=== PATIENT | male | born 1960 | race Caucasian/White ===

== ENCOUNTER 2016-08-09 15:59 | Emergency (ER) | payer OTHER ==
--- NOTE | ~2016-08-09 | CR210 ---
[facility]. [facility] A Service of [facility] RADIOLOGY TEXT RESULTS PATIENT: REFUGIO BASS LOCATION: SED : 58 UNIT #: [id number] AGE: [address]: NEGIN PULLIAM SEX: M ORDER DR: [id number] [place] [address] [id number] E MR#: [id number] Acc #: [id number] NAME: REFUGIO BASS. : 1960 SEX: M STUDY DATE/TIME: 08/09/2016 16:33 UNIT: SED ROOM: STUDY DESCRIPTION: CR Ribs Uni 2 View W PA Ch Lt Attending Physician: (Res) Negin Pulliam Ordering Physician: (Res) Negin Pulliam MEDICAL IMAGING REPORT This report is preliminary unless electronic signature is present. EXAM PA chest and left ribs. HISTORY Fell down steps at 2 o'clock this morning, left-sided chest pain. FINDINGS PA view of the chest demonstrates no acute cardiopulmonary disease. No pulmonary contusion, pneumothorax. Detailed views of the left ribs demonstrates no fracture or deformity. Soft tissues unremarkable. IMPRESSION Negative exam. Dictated by... Cody Moore M.D. THIS IS AN ELECTRONICALLY VERIFIED REPORT Cody Moore M.D. at 08/09/2016 9:10 PM Felicita TD: 08/09/2016 19:54 JOB #: [id number] MEDICAL IMAGING REPORT Page 1 of 1
--- NOTE | ~2016-08-09 | CR141 ---
[facility] A Service of [facility] RADIOLOGY TEXT RESULTS PATIENT: REFUGIO BASS LOCATION: SED : 58 UNIT #: [id number] AGE: [address]: NEGIN PULLIAM SEX: M ORDER DR: [id number] [place] [address] [id number] E MR#: [id number] Acc #: [id number] NAME: REFUGIO BASS. : 1960 SEX: M STUDY DATE/TIME: 08/09/2016 16:33 UNIT: SED ROOM: STUDY DESCRIPTION: CR Hand Min 3 Views Lt Attending Physician: (Savita) Negin Pulliam Ordering Physician: Fabiola) Negin Pulliam MEDICAL IMAGING REPORT This report is preliminary unless electronic signature is present. EXAM Left hand, 3 views. HISTORY Fell down steps, 2 o'clock this morning, swelling hand and wrist. FINDINGS Three views of the left hand submitted. The study is limited as the patient could not open their hand and the images were obtained in a clenched fist position. No gross fracture or malalignment. Questionable mild soft tissue swelling over the dorsum of the hand. Bone mineralization suggest mild osteopenia. IMPRESSION Technically limited study as the patient could not open their hand for adequate imaging. No gross fracture or dislocation. Suspected mild soft tissue swelling over the dorsum of the hand. Dictated by... Cody Moore M.D. THIS IS AN ELECTRONICALLY VERIFIED REPORT Cody Moore M.D. at 08/09/2016 9:10 PM Felicita TD: 08/09/2016 19:38 JOB #: [id number] MEDICAL IMAGING REPORT Page 1 of 1
--- NOTE | ~2016-08-09 | CR281 ---
[facility]. [facility] A Service of [facility] RADIOLOGY TEXT RESULTS PATIENT: REFUGIO BASS LOCATION: SED : 58 UNIT #: [id number] AGE: [address]: NEGIN PULLIAM SEX: M ORDER DR: [id number] [place] [address] [id number] E MR#: [id number] Acc #: [id number] NAME: REFUGIO BASS. : 1960 SEX: M STUDY DATE/TIME: 08/09/2016 16:33 UNIT: SED ROOM: STUDY DESCRIPTION: CR Wrist Min 3 View Lt Attending Physician: (Res) Negin Pulliam Ordering Physician: Fabiola) Negin Pulliam MEDICAL IMAGING REPORT This report is preliminary unless electronic signature is present. EXAM Left wrist, 3 views. HISTORY Fell down steps 2 o'clock this morning. Pain and swelling wrist. FINDINGS Three views of the left wrist demonstrates no fracture or dislocation. 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 Mild osteopenia. Soft tissue swelling noted over the dorsum of the hand and wrist. Dictated by... Cody Moore M.D. THIS IS AN ELECTRONICALLY VERIFIED REPORT Cody Moore M.D. at 08/09/2016 9:10 PM Felicita TD: 08/09/2016 19:49 JOB #: [id number] MEDICAL IMAGING REPORT Page 1 of 1
[~2016-08-09 15:59] MED LIST: ALBUTEROL17 GM INH; ALPRAZOLAM1 MG PO; HYDROCODONE/APA1 T16 PO; LEVAQUIN750 MG PO; LIPITOR PO; LORTAB 7.5-5001 TAB PO; MEDROL DOSEPAK4 MG PO; METOPROLOL TART25 MG PO; NOT SURE OF MEDS; PROMETHAZINE D118 ML PO
[2016-08-09] MEDS ORDERED: KEPPRA (16:08)
[2016-08-09] MEDS ORDERED: ASPIRIN (16:09)
[2016-08-09] MEDS ORDERED: VALTREX (16:09)
== END 2016-08-09 17:38 | disposition home or self-care (01) ==
LOC: SED 15:59
DX: S50.12XA Contusion of left forearm, initial encounter (principal); I10 Essential (primary) hypertension; F17.200 Nicotine dependence, unspecified, uncomplicated; I25.2 Old myocardial infarction; Z88.5 Allergy status to narcotic agent; Z79.899 Other long term (current) drug therapy; W01.0XXA Fall on same level from slipping, tripping and stumbling without subsequent striking against object, initial encounter; Y92.009 Unspecified place in unspecified non-institutional (private) residence as the place of occurrence of the external cause
CPT/HCPCS: 71100; 73110; 73130; 99283